=== PATIENT | male | born 2000 | race Caucasian/White ===

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

== ENCOUNTER 2021-08-13 20:35 | Emergency (ER) | payer OTHER ==
[~2021-08-13] VITALS: Ht 177.8 cm; Wt 88.5 kg
[2021-08-13 21:45] VITALS: BP 130/72
--- NOTE | 2021-08-13 21:53 | PHYS DOC ---
Past History Past Medical History: No Pertinent History Past Surgical History: Other Additional Past Surgical Histo: ACL surgery Smoking: Non-smoker Alcohol Use: Heavy Drug Use: Marijuana General Adult EDM: Chief Complaint: HAND PROBLEM HPI: HPI: Patient is a 21-year-old male who presents to the emergency department for dorsal right hand pain after he got smashed in a pipe 1 week ago at work. Patient reports increased pain and swelling. He rates his pain 7 out of 10. He took ibuprofen at 6:00 this evening. He denies any decreased sensation but reports increased pain with flexion of hand. Review of Systems: Review of Systems: Musculoskeletal: See HPI Integument: See HPI Neurologic: See HPI Allergies: Allergies: Allergies Coded Allergies Type Severity Reaction Last Updated Verified No Known Drug Allergies 03/25/18 No Physical Exam: PE: Constitutional: Well developed, well nourished, no acute distress, non-toxic appearance. [] HENT: Normocephalic, atraumatic, bilateral external ears normal, oropharynx moist, no oral exudates, nose normal. [] Eyes: PERRL, EOMI, conjunctiva normal, no discharge. [] Neck: Normal range of motion, no stridor Cardiovascular: Normal peripheral perfusion Lungs & Thorax: Normal work of breathing, no tachypnea Abdome soft and flat Skin: Warm, dry, no erythema, no rash. [] Back: Normal range of motion Extremities: No tenderness, no cyanosis, no clubbing, ROM intact, no edema. [] Right hand: Swelling and pain noted to dorsal aspect of right hand proximal to fourth and fifth MCP joint, decreased flexion due to pain, full extension noted, neuro intact, no obvious deformity Neurologic: Alert and oriented X 3, normal motor function, normal sensory function, no focal deficits noted. [] Psychologic: Affect normal, judgement normal, mood normal. [] EKG: EKG: [] Radiology/Procedures: Radiology/Procedures: []PROCEDURE: WRIST 3V RIGHT EXAMINATION: XR RT WRIST 3VIEWS, XR HAND_RIGHT 3 VIEWS CLINICAL HISTORY: Right hand and wrist pain following crush injury. Pain in fourth and fifth digits. TECHNIQUE: XR RT WRIST 3VIEWS, XR HAND_RIGHT 3 VIEWS COMPARISON: None FINDINGS/ IMPRESSION: Cortical irregularity along the first metacarpal base, nonspecific but may be related to a subtle fracture or remote trauma. Correlate clinically. Is otherwise no evidence of acute or chronic fracture. Joint spaces and alignment maintained. No focal soft tissue swelling. Electronically signed by: Javid Morales DO (08/13/2021 10:31 PM) [facility] DICTATED AND SIGNED BY: JAVID MORALES DO DATE: 08/13/212226 CC: YULISA MARTINEZ MD; ESAU CELIS APRN; PCP,NO ~MTH0 0 Heart Score: C/O Chest Pain: N/A Risk Factors: Risk Factors: DM, Current or recent (<one month) smoker, HTN, HLP, family history of CAD, obesity. Risk Scores: Score 0 - 3: 2.5% MACE over next 6 weeks - Discharge Home Score 4 - 6: 20.3% MACE over next 6 weeks - Admit for Clinical Observation Score 7 - 10: 72.7% MACE over next 6 weeks - Early Invasive Strategies Course & Med Decision Making: Course & Med Decision Making Pertinent Labs and Imaging studies reviewed. (See chart for details) [] Patient presents to the emergency department today for right hand pain after smashing with a pipe 1 week ago. An x-ray was performed in the emergency department. X-ray did not show any acute findings. Neurovascularly intact. Patient's hand was placed in Kenn wrap. Patient educated on the rice protocol. Patient advised to give Tylenol and ibuprofen for pain. I discussed with patient all findings and diagnostic testing as well as the need to follow-up with PCP for further evaluation and treatment or return to the ER if any new or worsening symptoms. Strict return precautions were also discussed at length. Patient voiced understanding and agreement with the plan. Patient is hemodynamically stable at the time of disposition. Dragon Disclaimer: James Disclaimer: This electronic medical record was generated, in whole or in part, using a voice recognition dictation system. Departure Departure: Impression: Primary Impression: Hand contusion Qualified Codes: S60.221A - Contusion of right hand, initial encounter Disposition: HOME / SELF CARE / HOMELESS Condition: GOOD Referrals: PCP,NO (PCP) Patient Instructions: RICE - Routine Care for Injuries Additional Instructions: You are seen in the emergency department today for hand pain. An x-ray was performed that showed no acute findings. Your hand was placed in an Kenn wrap. This will likely improve over time. Your symptoms may be improved by something called the rice protocol. This is rest, ice, compression, elevation. Please follow-up when doing intense exercises that may make the pain worse. Sometimes gentle stretching can provide relief, but be careful to injury. It is important to perform gentle range of motion exercises to prevent stiff joints and chronic pain. Use ice packs over the affected areas to help decrease your pain. For the first 24 hours you can apply ice 20 minutes on 20 minutes off for 4 times p er day. Sometimes compression such as the use of an Kenn wrap can help with the swelling. You may also elevate the affected area to help with the swelling. You can take Tylenol and ibuprofen for pain at home. Follow-up with your primary care provider tomorrow regarding your ER visit. If you do not have a primary care provider you can follow-up with one of the clinics attached to your discharge paperwork. Return to the emergency department if you develop any new injuries, decreased range of motion, decreased sensation in your extremity. ESAU CELIS APRN Aug 13, 2021 21:53
--- NOTE | 2021-08-13 22:34 | RAD ---
EXAMINATION: XR RT WRIST 3VIEWS, XR HAND_RIGHT 3 VIEWS CLINICAL HISTORY: Right hand and wrist pain following crush injury. Pain in fourth and fifth digits. TECHNIQUE: XR RT WRIST 3VIEWS, XR HAND_RIGHT 3 VIEWS COMPARISON: None FINDINGS/ IMPRESSION: Cortical irregularity along the first metacarpal base, nonspecific but may be related to a subtle fra cture or remote trauma. Correlate clinically. Is otherwise no evidence of acute or chronic fracture. Joint spaces and alignment maintained. No foca l soft tissue swelling. Electronically signed by: Javid Callahan DO (08/13/2021 10:31 PM) [facility]
== END 2021-08-13 22:48 | disposition home or self-care (01) ==
LOC: ER 20:35
DX: S60.221A Contusion of right hand, initial encounter (principal); F10.20 Alcohol dependence, uncomplicated; Y90.9 Presence of alcohol in blood, level not specified; W23.0XXA Caught, crushed, jammed, or pinched between moving objects, initial encounter; Y93.89 Activity, other specified; Y92.89 Other specified places as the place of occurrence of the external cause; Y99.8 Other external cause status
CPT/HCPCS: 73110; 73130; 99284